=== PATIENT | male | born 1940 | race Caucasian/White ===

== ENCOUNTER 2019-10-16 10:13 | Outpatient (CLI) | payer MEDICARE, SELFPAY ==
--- NOTE | 2019-10-16 10:26 | XR_ITS ---
WS: [id number] XR cervical spine min 6V [id number] REASON FOR EXAM: DEGENERATIVE JOINT DZ-CSPINE/ACUTE NECK PAIN/VERTEBRAL FX FINDINGS: Degenerate changes of the joints of [place]. The odontoid process was normal. Lateral projection show loss of the disc space C5-6, C6-7. Oblique views show normal patency of the foramina. Normal flexion-extension views. XR/XR cervical spine min 6V [id number] IMPRESSION: Degenerate changes of the joints of L[place]ch[place]. Degenerate disc changes C5-C6, C6-7.
== END 2019-10-16 10:14 | disposition home or self-care (01) ==
LOC: RAD 10:20
PROVIDERS: Family Provider Electrodiagnostic Medicine; PCP Electrodiagnostic Medicine; Visit Provider Electrodiagnostic Medicine
DX: M43.02 Spondylolysis, cervical region (principal); M47.892 Other spondylosis, cervical region; M54.2 Cervicalgia
CPT/HCPCS: 72052

== ENCOUNTER 2019-12-09 08:55 | Outpatient (CLI) | payer MEDICARE, SELFPAY ==
--- NOTE | 2019-12-09 09:02 | MR_ITS ---
WS: [id number] MRI CERVICAL SPINE NONCONTRAST TECHNIQUE: Sagittal T1, T2 and STIR imaging. Axial T2, gradient, and fiesta imaging. CLINICAL INFORMATION: CERVICAL RADICULOPATHY, DEGENRATIVE JOINT DISEASE, NECK PAIN COMPARISON: None. FINDINGS: Straightening of the normal cervical lordosis. Segmentation anomaly C2-3. Slight retrolisthesis C3 on C4 and C4 on C5. C2-C3: Congenital segmentation anomaly. Mild bilateral bony foraminal narrowing. Spinal canal is watters nt. C3-C4: Slight retrolisthesis. Mild bilateral bony foraminal narrowing. Mild osteophytic ridging. Mild facet arthropathy. C4-C5: Mild disc bulging with osteophytic ridging. Mild to moderate facet arthropathy. Mild central c anal stenosis. Mild to moderate left and mild right bony foraminal narrowing. Moderate facet arthropa thy. C5-C6: Mild disc osteophytic ridging. Spinal canal is patent. Mild to moderate left and mild right [place] foraminal narrowing. Moderate facet arthropathy. C6-C7: Moderate left and mild right bony foraminal narrowing. Spinal canal is patent. Moderate facet arthropathy. C7-T1: Mild to moderate left and no significant right foraminal narrowing. Spinal canal is patent. Edema within the articulating left C4-5 facets with small facet effusion. Small amount of soft tissue edema. MR/MR cervical spin wo con* [id number] IMPRESSION: 1. Synovitis involving the left C4-5 articulating facets with soft tissue andrés a and a tiny facet effusion. 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 3. Mild central canal stenosis C4-5 4. Mild to moderate multilevel bony foraminal narrowing worse at left C4-C5, b ilateral C5-C6, and left C6-7.
== END 2019-12-09 08:56 | disposition home or self-care (01) ==
LOC: RADWPI 09:02
PROVIDERS: Family Provider Electrodiagnostic Medicine; PCP Electrodiagnostic Medicine; Visit Provider Electrodiagnostic Medicine
DX: M54.12 Radiculopathy, cervical region (principal); M54.2 Cervicalgia; M47.812 Spondylosis without myelopathy or radiculopathy, cervical region; M65.88 Other synovitis and tenosynovitis, other site; Q76.49 Other congenital malformations of spine, not associated with scoliosis; M48.02 Spinal stenosis, cervical region
CPT/HCPCS: 72141

== ENCOUNTER 2020-03-22 12:31 | Outpatient (CLI) | payer MEDICARE, SELFPAY ==
--- NOTE | 2020-03-22 12:37 | USCV_ITS ---
Mario Wolf Age: 79 Gender: M : 1940 Exam Date: 03/22/2020 12:53 Ordering Phys: Feliberto Fernandes DO Technologist: Arsen Crouch Exam Location: [facility] – [place], [place]_ Indication: LT LEG PAIN AND EDEMA HISTORY: Lower extremity swelling. PROCEDURES: Venous duplex imaging was performed in only the left lower extremity. The following venous structures were evaluated: common femoral vein, profunda vein, proximal portion of the greater saphenous vein, superficial femoral vein, and the popliteal vein. In addition, the posterior tibial veins were evaluated. On the left side, the common femoral, superficial femoral, profunda femoral, popliteal, posterior tibial, greater saphenous veins, and the peroneal trunk were identified and interrogated in the standard fashion. These veins were found to be easily compressible with spontaneous blood flow. No evidence of insufficiency or thrombus noted. FINDINGS: Normal 2-D Doppler and augmentation and compressibility throughout the lower extremity venous structures. Additional imaging through the proximal calf veins also reveals no thrombus. Limited evaluation of the greater saphenous vein is patent with no thrombus.. LARGE LYMPH NODES IN LT GROIN. Echolucent areas are noted in the subcutaneous plane of the lower leg CONCLUSIONS No evidence of DVT in the above-mentioned identifiable veins. Features of edema/fluid retention in the lower leg Circumscribed lesions were noted in the left groin, suggestive of enlarged lymph nodes Dr Gage Burdick MD [facility] (Electronically Signed) Final Date: 24 March 2020 08:36 S
== END 2020-03-22 12:32 | disposition home or self-care (01) ==
LOC: RAD 12:34
PROVIDERS: Family Provider Electrodiagnostic Medicine; PCP Electrodiagnostic Medicine; Visit Provider Electrodiagnostic Medicine
DX: M79.605 Pain in left leg (principal); R60.0 Localized edema
CPT/HCPCS: 93971

== ENCOUNTER 2020-06-07 12:17 | Outpatient (CLI) | payer MEDICARE, SELFPAY ==
--- NOTE | 2020-06-07 12:45 | XRR_ITS ---
PROCEDURE INFORMATION: Exam: XR Abdomen, 1 View Exam date and time: 06/07/2020 12:21 PM Age: 80 years old Clinical indication: Condition or disease; Other: Stones TECHNIQUE: Imaging protocol: XR of the abdomen. Views: Frontal supine view of the abdomen. 1 View. COMPARISON: CR XR KUB [id number] 11/13/2016 2:34 PM FINDINGS: Gastrointestinal tract: Prominent stool, in a pattern of constipation. Organs: Evaluation of the renal fossa is limited due to overlying bowel gas and stool. Vasculature: Prominent vascular calcification. If urolithiasis is of clinical concern, CT may be of benefit for further evaluation. Bones/joints: Dextroscoliosis and degenerative change. XR/XR KUB [id number] IMPRESSION: Prominent stool, in a pattern of constipation.
== END 2020-06-07 12:18 | disposition home or self-care (01) ==
LOC: RAD 12:17
PROVIDERS: Family Provider Electrodiagnostic Medicine; PCP Electrodiagnostic Medicine; Visit Provider Urology
DX: N20.0 Calculus of kidney (principal)
CPT/HCPCS: 74018; 81001

== ENCOUNTER 2021-06-07 13:03 | Outpatient (CLI) | payer MEDICARE, SELFPAY ==
--- NOTE | 2021-06-07 | XR_ITS ---
WS: [id number] XR KUB [id number] REASON FOR EXAM: KIDNEY STONES FINDINGS: No intrarenal calculi are identified. No calculi along the course of the ureters is identified. No calculus overlying the bladder. Vascular calcifications seen right lower quadrant. 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 Unchanged from multiple previous examinations. Large amount of stool in the colon and overlying the kidneys. XR/XR KUB [id number] IMPRESSION: No urinary tract calculi identified. Vascular calcification as above.
== END 2021-06-07 13:04 | disposition home or self-care (01) ==
LOC: RAD 13:05
PROVIDERS: PCP Electrodiagnostic Medicine; Visit Provider Urology
DX: N20.0 Calculus of kidney (principal)
CPT/HCPCS: 74018; 81003